=== PATIENT | female | born 1985 | race Caucasian/White ===

== ENCOUNTER 2017-03-30 22:23 | Emergency (ER) | payer OTHER ==
--- NOTE | ~2017-03-30 | ER ---
PATIENT'S NAME: SAVANA JEFFERSON [facility] AGE: 32 Y [address] ROOM: [place] [address] LOCATION: [facility] ADMIT DATE: 03/30/2017 ER/Outpatient Report DISCHARGE DATE: 03/30/2017 FAMILY PHYSICIAN: Miles eH MD ATTENDING PHYSICIAN: Hunter Mckeon Time of Arrival: 2223 hours. Time of Evaluation: 2228 hours. CHIEF COMPLAINT: Abdominal pain. HISTORY OF PRESENT ILLNESS: This is a 32-year-old female who presents to the ER with midepigastric abdominal pain, this started approximately 4 hours prior to arrival. She states she ate a big meal around 1830 hours and it started shortly around that time. She states that her pain is located in the midepigastric area, it does not radiate anywhere, and she describes it as sharp and stabbing in nature. She has had no fever or chills. No troubles with urination. No troubles with bowel movements. Her last bowel movement was tonight and was normal. She states she has had history of acid reflux with her . She also has been taking some ibuprofen for her low back pain, but it has not seemed to help with this pain. The patient denies any other problems at this time. ALLERGIES: NO KNOWN ALLERGIES. MEDICATIONS: Please see medication list nurse's notes. PAST MEDICAL HISTORY: Recent and oophorectomy and appendectomy. SOCIAL HISTORY: Denies smoking, drug, or alcohol use. REVIEW OF SYSTEMS: All systems reviewed and were negative with the exception of those discussed in the HPI. PHYSICAL EXAMINATION: VITAL SIGNS: Height 5 feet and 4 inches stated, weight 67.9 kg taken, blood pressure is 138/82, pulse 60, respirations 20, temperature 98.1 degrees tympanically, and saturations 98% on room air. [place] Coma Score is 15. GENERAL: Alert and anxious female in mild distress. PATIENT'S NAME: SAVANA JEFFERSON [facility] AGE: 32 Y [address] ROOM: [place] [address] LOCATION: [facility] ADMIT DATE: 03/30/2017 ER/Outpatient Report DISCHARGE DATE: 03/30/2017 FAMILY PHYSICIAN: Miles He MD ATTENDING PHYSICIAN: Linda,Hunter J HEENT: Head: Normocephalic. Eyes: Pupils are equal and reactive to light. She does display moist mucous membranes. LUNGS: Clear to auscultation bilaterally. HEART: Regular rate and rhythm. ABDOMEN: Soft. She does have tenderness in her midepigastric region with palpation. She has no tenderness over her lower abdomen. Her scar is completely healed. She does have good bowel sounds throughout. No masses were palpated. NEURO: Cranial nerves II through XII grossly intact. Gait is steady without assistance. LABORATORY DATA: CBC: White count was 8.6, hemoglobin was 13.2, and platelets 198. CMS was unremarkable. Amylase 52. Lipase 110. H. pylori was negative. IMPRESSION: Upper abdominal pain and acid reflux. ASSESSMENT AND PLAN: We did give the patient a GI cocktail here in the emergency room and we did monitor. She states this greatly improved her pain. We will dismiss her to home. I advised her to pickle solution maker some Prilosec and take it in the mornings before breakfast. She needs to partake in a bland diet, Tums as needed for any breakthrough pain, and I would like her to follow up with her primary care physician in 1 week or she may return here to the emergency room if any of her symptoms worsen. The patient understands and agrees with care. MILAN HERNANDEZ PA-C FOR DO [facility]ANT[facility] SOW/marlene /[id number] d: 04/01/17 0029 t: 04/07/17 1120, OUTPATIENT REPORT
[2017-03-30 23:08] LABS: BASOPHIL % 0.5 %; EOSINOPHIL # 0.5 K/uL (0.0-0.5); EOSINOPHIL % 6.3 %; HEMATOCRIT 37.6 % (33.0-46.0); HEMOGLOBIN 13.2 g/dL (11.0-15.0); IMMATURE GRANULOCYTE % 0.2 %; LYMPHOCYTE # 1.5 K/uL (0.8-4.0); LYMPHOCYTE % 16.9 %; MCH 32.2 pg (27.0-34.0); MCHC 35.1 gm/dL (32.0-36.5); MCV 91.7 fl (83.0-98.0); MONOCYTE # 0.5 K/uL (0.0-1.0); MONOCYTE % 5.4 %; MPV 11.6 fl (9.4-12.4); NEUTROPHIL # (ANC) 6.1 K/uL (1.8-7.8); NEUTROPHIL % 70.7 %; NRBC % 0 /100WBC (0-0.00); PLATELET COUNT 198 K/uL (150-450); RDW-CV 12.2 % (11.9-14.6); WBC 8.6 K/uL (4.0-11.0)
[2017-03-30 23:24] LABS: ALBUMIN 3.4 gm/dL (3.5-5.0); ANION GAP 12.1 (10.0-19.0); CALCIUM 8.6 mg/dL (8.5-10.5); POTASSIUM 4.1 mMol/L (3.7-5.1); TOTAL BILIRUBIN 0.3 mg/dL (0.0-1.5); TOTAL PROTEIN 7.2 g/dL (6.0-8.4)
== END 2017-03-30 23:53 | disposition disaster alternative care site (69) ==
LOC: GMED 22:23
PROVIDERS: Physician Assistant Medical
DX: K21.9 Gastro-esophageal reflux disease without esophagitis (principal); Z90.721 Acquired absence of ovaries, unilateral; Z98.890 Other specified postprocedural states; Z90.49 Acquired absence of other specified parts of digestive tract; Z79.1 Long term (current) use of non-steroidal anti-inflammatories (NSAID); Z79.899 Other long term (current) drug therapy; Z91.018 Allergy to other foods